=== PATIENT | female | born 1960 | race Caucasian/White ===

== ENCOUNTER 2021-04-29 08:37 | Emergency (ER) | payer BC ==
--- NOTE | 2021-04-29 08:51 | ED Physician Documentation ---
PD HPI CHEST PAIN - Stated complaint Stated Complaint: RAPID HEART RATE - Chief complaint Chief Complaint: Cardiac - History obtained from History obtained from: Patient - History of Present Illness Timing - onset: Today, Last night Timing - onset during: Light activity (she states soon after dinner last night, noted feeling of discomfort and fast heart rate in chest. Has new smart watch and it read heart rate to be 90-100, with usual resting HR 60s. No chest pain nor dyspnea with walking. States uncomfortable during night with trying to sleep. Did not sleep well.) Timing - details: Gradual onset, Waxing and waning. No: Intermittant Quality: Pressure. No: Aching, Sharp Location: Substernal Radiation: No: Jaw, Neck, Back Improved by: No: Rest Worsened by: No: Exertion Associated symptoms: Palpitations. No: Shortness of air, Nausea, Feeling faint / dizzy Similar symptoms before: Has not had sx before Recently seen: Not recently seen Review of Systems Constitutional: denies: Fever, Chills Nose: denies: Rhinorrhea / runny nose, Congestion Throat: denies: Sore throat Cardiac: reports: Chest pain / pressure, Palpitations. denies: Pedal edema, Calf pain Respiratory: denies: Dyspnea, Cough GI: denies: Abdominal Pain, Nausea, Vomiting Musculoskeletal: denies: Extremity swelling Neurologic: denies: Near syncope PD PAST MEDICAL HISTORY - Past Medical History Cardiovascular: None Respiratory: None Neuro: None Endocrine/Autoimmune: None - Present Medications Home Medications: Ambulatory Orders Medication Instructions Recorded Confirmed No Known Home Medications 04/29/21 04/29/21 - Allergies Allergies/Adverse Reactions: Allergies Allergy/AdvReac Type Severity Reaction Status Date / Time No Known Drug Allergies Allergy Verified 04/29/21 08:48 PD ED PE NORMAL - Vitals Vital signs reviewed: Yes - General General: Alert and oriented X 3, No acute distress, Well developed/nourished - HEENT HEENT: Moist mucous membranes, Pharynx benign - Neck Neck: Supple, no meningeal sign, No adenopathy - Cardiac Cardiac: RRR, No murmur - Respiratory Respiratory: Clear bilaterally - Abdomen Abdomen: Normal bowel sounds, Soft, Non tender - Derm Derm: Normal color, Warm and dry - Extremities Extremities: Normal ROM s pain, No edema, No calf tenderness / cord - Neuro Neuro: Alert and oriented X 3, No motor deficit, Normal speech Results - Vitals Vitals: Vital Signs - 24 hr 04/29/21 04/29/21 04/29/21 08:44 09:09 09:32 Temperature 35.8 C L Heart Rate 89 81 70 Respiratory 16 22 14 Rate Blood Pressure 148/81 H 133/102 H 113/83 H O2 Saturation 98 100 98 04/29/21 10:01 Temperature 36.5 C Heart Rate 68 Respiratory 16 Rate Blood Pressure 123/71 O2 Saturation 100 Oxygen O2 Source Room air - EKG (time done) 08:42 Rate: Rate (enter#) (87) Rhythm: NSR [place]: Normal Intervals: Normal [place] QRS: Normal Ischemia: Normal ST segments, ST depression (minimal ST depression diffuse lead s, not patterned. ). No: ST elevation c/w ischemia, ST elevation c/w repol - Labs Labs: Laboratory Tests 04/29/21 04/29/21 04/29/21 08:50 08:50 08:50 WBC 7.2 RBC 4.51 Hgb 13.8 Hct 42.7 MCV 94.7 MCH 30.6 MCHC 32.3 RDW 12.8 Plt Count 248 MPV 10.4 Neut # (Auto) 5.9 Lymph # (Auto) 0.9 L [place] # (Auto) 0.3 Eos # (Auto) 0.0 Baso # (Auto) 0.0 Absolute Nucleated RBC 0.00 Nucleated RBC % 0.0 Sodium 139 Potassium 3.7 Chloride 102 Carbon Dioxide 26 Anion Gap 11.0 BUN 13 Creatinine 0.7 Estimated GFR (MDRD) 86 L Glucose 121 H Calcium 9.4 Magnesium Total Bilirubin 0.9 AST 28 ALT 20 Alkaline Phosphatase 56 Troponin I High Sens 2.6 C-Reactive Protein Total Protein 8.1 Albumin 4.7 Globulin 3.4 Albumin/Globulin Ratio 1.4 Lipase 38 TSH 04/29/21 04/29/21 08:50 08:50 WBC RBC Hgb Hct MCV MCH MCHC RDW Plt Count MPV Neut # (Auto) Lymph # (Auto) [place] # (Auto) Eos # (Auto) Baso # (Auto) Absolute Nucleated RBC Nucleated RBC % Sodium Potassium Chloride Carbon Dioxide Anion Gap BUN Creatinine Estimated GFR (MDRD) Glucose Calcium Magnesium 2.3 Total Bilirubin AST ALT Alkaline Phosphatase Troponin I High Sens C-Reactive Protein < 1.0 Total Protein Albumin Globulin Albumin/Globulin Ratio Lipase TSH 2.58 - Rads (name of study) chest xray Radiology: Prelim report reviewed (no acute process), See rad report PD MEDICAL DECISION MAKING - ED course Complexity details: reviewed results (Normal trop and ECG (nondiagnostic diffuse mild ST depressions) - consider pericarditis, but no causative factor (recent URI, vaccine, meds). ), considered differential (has relative tachycardia, with HR 90-100 at rest, whereas normal HR typically 60. Has discomfort/pressure in chest at rest, and for past 6 hours. Not exertional. ), d/w patient Departure - Departure Disposition: Home, Self Care Clinical Impression: Chest discomfort, Tachycardia Condition: Stable Instructions: ED Chest Pain Atypical Unkn Cause Comments: Your EKG did not show any signs of heart injury. Your chest x-ray is clear. Your blood tests including your blood count and chemistry panel troponin and TSH (thyroid screen) are normal. No signs of heart attack, abnormal heart rhythm, pneumonia, fluid in the lungs or heart failure, diabetes, thyroid disorder, electrolyte imbalance, renal or liver dysfunction. At this point I am not sure the cause of your heart rate being a little bit faster. May be an early mild illness or may have had some food intolerance or such. Be aware of any worsening general symptoms such as abdominal pain, chest pain, fevers, cough, bloody stool or any other blossoming symptoms that may delineate the cause better. Otherwise I would anticipate improvement in the next day or 2 if it was mild transient illness. Discharge Date/Time: 04/29/21 10:19
[2021-04-29 09:00] LABS: BASOPHILS % (AUTO) 0.4 %; HCT - HEMATOCRIT 42.7 % (37.0-47.0); HGB - HEMOGLOBIN 13.8 g/dL (12.0-16.0); LYMPHOCYTES # (AUTO) 0.9 10^3/uL (1.5-3.5); LYMPHOCYTES % (AUTO) 12.2 %; MEAN CORPUSCULAR HEMOGLOBIN 30.6 pg (27.0-31.0); MEAN CORPUSCULAR HGB CONC 32.3 g/dL (32.0-36.0); MEAN CORPUSCULAR VOLUME 94.7 fL (81.0-99.0); MEAN PLATELET VOLUME 10.4 fL (7.9-10.8); MONOCYTES # (AUTO) 0.3 10^3/uL (0.0-1.0); MONOCYTES % (AUTO) 4.5 %; NEUTROPHILS # (AUTO) 5.9 10^3/uL (1.5-6.6); NEUTROPHILS % (AUTO) 82.8 %; PLT - PLATELET COUNT 248 10^3/uL (130-450); RED BLOOD COUNT 4.51 10^6/uL (4.20-5.40); RED CELL DISTRIBUTION WIDTH 12.8 % (12.0-15.0); WHITE BLOOD COUNT 7.2 x10^3/uL (4.8-10.8)
[2021-04-29 09:17] LABS: ALBUMIN 4.7 g/dL (3.2-5.5); ALBUMIN/GLOBULIN RATIO 1.4 (1.0-2.2); BILIRUBIN,TOTAL 0.9 mg/dL (0.2-1.0); CALCIUM 9.4 mg/dL (8.5-10.3); CREATININE 0.7 mg/dL (0.4-1.0); POTASSIUM 3.7 mmol/L (3.5-5.0); TOTAL PROTEIN 8.1 g/dL (6.7-8.2)
--- NOTE | 2021-04-29 09:25 | XRAY Report ---
PROCEDURE: Chest 1 View X-Ray INDICATIONS: Chest Pain TECHNIQUE: One view of the chest was acquired. COMPARISON: None FINDINGS: Surgical changes and devices: None. Lungs and pleura: No pleural effusions or pneumothorax. Lungs are clear. Mediastinum: Mediastinal contours appear normal. Heart size is normal. Bones and chest wall: No suspicious bony lesions. Overlying soft tissues appear unremarkable. IMPRESSION: No acute cardiopulmonary abnormality. Reviewed by: Giovanni Polk on 04/29/2021 8:24 AM [facility] Approved by: Giovanni Polk on 04/29/2021 8:24 AM [facility] Station ID: [id number]
[2021-04-29 09:47] LABS: MAGNESIUM 2.3 mg/dL (1.7-2.8)
[2021-04-29 09:58] LABS: CRP - C-REACTIVE PROTEIN < 1.0 mg/dL (0-1.0)
[2021-04-29 10:02] VITALS: BP 123/71
== END 2021-04-29 10:19 | disposition home or self-care (01) ==
LOC: ED 08:37
DX: R07.9 Chest pain, unspecified (principal); R00.0 Tachycardia, unspecified
CPT/HCPCS: 36415; 80053; 83690; 83735; 84443; 84484; 85025; 86140; 93005; 99284